=== PATIENT | female | born 1965 | race African-American/Black ===

== ENCOUNTER 2016-05-22 19:12 | Emergency (ER) | payer MEDICARE, BC, OTHER ==
[~2016-05-22] VITALS: Ht 157.5 cm; Wt 108.4 kg
[~2016-05-22 19:12] MED LIST: ASCO500T3 PO; CHOL10003 PO; CYAN10005 PO; ERGO500012 PO; HYDR12.58 PO; LEVO200T5 PO; LEVO50TA5 PO; LEVO5TAB2 PO; LIOT25TA3 PO; LISI1TAB3 PO; LISI2.5T PO; LOVA10TA PO; METH750T2 PO; MONT10TA9 PO; MULT-208 PO; NABU500T PO; OMEP20TA PO; OXYB5TAB33 PO; POTA20TA82 PO; PRED20TA PO; PROAIR HFA8.5 GM INH; SITA50TA PO; SUCR1TAB PO; SUMA100T4 PO; TROS60CA2 PO
[2016-05-22 19:22] VITALS: BP 117/66
[2016-05-22] MEDS ORDERED: ONDA4TAB10 PO (19:43)
[2016-05-22] MEDS ORDERED: AMOX500C PO (19:43)
[2016-05-22] MEDS ORDERED: HYDR-971 PO (19:43)
--- NOTE | 2016-05-22 19:43 | PHYS DOC ---
Past Medical History Past Medical History: Cancer, Diabetes-Type II, GERD, High Cholesterol, Hypertension, Hypothyroid, Migraines, TIA, Other Additional Past Medical Histor: BREAST CA Past Surgical History: Other Additional Past Surgical Histo: RIGHT MASTECTOMY, LEFT BREAST RECONSTRUCTION Alcohol Use: Occasionally Drug Use: None Adult General Chief Complaint Chief Complaint: Toothache HPI HPI Patient is a 50 year old female presents emergency Department today with complaint of right lower dental pain is been ongoing for the past couple of days. Patient states that she knows that she has some teeth that are in poor repair. She denies fevers, chills, myalgias or arthralgias. She denies antibiotic use or dental work done within the past 30 days. Review of Systems Review of Systems Constitutional: Denies fever or chills [] Eyes: Denies change in visual acuity, redness, or eye pain [] HENT: Denies nasal congestion or sore throat [] Respiratory: Denies cough or shortness of breath [] Cardiovascular: No additional information not addressed in HPI [] GI: Denies abdominal pain, nausea, vomiting, bloody stools or diarrhea [] : Denies dysuria or hematuria [] Musculoskeletal: Denies back pain or joint pain [] Integument: Denies rash or skin lesions [] Neurologic: Denies headache, focal weakness or sensory changes [] Endocrine: Denies polyuria or polydipsia [] Allergies Allergies Allergies Coded Allergies Type Severity Reaction Last Updated Verified shrimp Allergy Intermediate Itching 02/18/15 Yes fish oil Adverse Reaction Intermediate Nausea and Vomiting 02/18/15 Yes morphine Adverse Reaction Intermediate Nausea and Vomiting 02/18/15 Yes metformin Adverse Reaction Unknown Nausea and Vomiting 02/18/15 Yes Physical Exam Physical Exam Constitutional: Well developed, well nourished, no acute distress, non-toxic appearance. [] HENT: Normocephalic, atraumatic, bilateral external ears normal, oropharynx moist, no oral exudates, nose normal. There is no trismus. Patient's second bicuspid, first and second right mandibular molars are very stages of decay. The first molar is missing the posterior third of the tooth into the dentin. There is no active purulent drainage. There is mild gingival inflammation without a fluctuant pocket suggestive of an abscess. Eyes: PERRLA, EOMI, conjunctiva normal, no discharge. Bilateral roving nystagmus. Neck: Normal range of motion, no tenderness, supple, no stridor. [] Cardiovascular:Heart rate regular rhythm, no murmur [] Lungs & Thorax: Bilateral breath sounds clear to auscultation [] Abdomen: Bowel sounds normal, soft, no tenderness, no masses, no pulsatile masses. [] Skin: Warm, dry, no erythema, no rash. [] Back: No tenderness, no CVA tenderness. [] Extremities: No tenderness, no cyanosis, no clubbing, ROM intact, no edema. [] Neurologic: Alert and oriented X 3, normal motor function, normal sensory function, no focal deficits noted. [] Psychologic: Affect normal, judgement normal, mood normal. [] Current Patient Data Vital Signs Vital Signs Date Time Temp Pulse Resp B/P Pulse Ox O2 Delivery O2 Flow Rate FiO2 05/22/16 19:22 97.7 77 20 117/66 96 Room Air 97.7 EKG EKG [] Radiology/Procedures Radiology/Procedures [] Course & Med Decision Making Course & Med Decision Making Patient had an additional complaint of nausea. Zofran ODT was ordered for here. She denies abdominal pain. She denies any vomiting, constipation or diarrhea. Dragon Disclaimer Dragon Disclaimer This electronic medical record was generated, in whole or in part, using a voice recognition dictation system. Departure Departure Impression: Primary Impression: Dental caries Disposition: 01 HOME, SELF-CARE Condition: GOOD Referrals: MADDIE GENAO MD (PCP) Patient Instructions: Dental Caries-Brief Additional Instructions: 1. Take the medication as prescribed. 2. Review the discharge instructions provided for self-care and reasons to return to the emergency department. 3. Follow-up with a dental school clinic persistency receiving definitive dental care. If you require an additional prescription for pain medication or antibiotic, please contact your primary care doctor to do so. Scripts Ondansetron (Zofran Odt)4 Mg Tab.rapdis4 Mg PO Q8HRS PRN NAUSEA/VOMITING #10 TAB Prov:TASHA QUINTEROS 05/22/16 Hydrocodone/Apap 5-325 ([place] 5-325 Tablet)1 Each Tablet1 Tab PO PRN Q6HRS PRN PAIN #15 TAB Prov:TASHA QUINTEROS 05/22/16 Amoxicillin 500 Mg Cnljayz062 Mg PO TID #30 CAP Prov:TASHA QUINTEROS 05/22/16 TASHA QUINTEROS May 22, 2016 19:43
[2016-05-22] MEDS ORDERED: ONDANSETRON ODT 4 MG TAB.RAPDIS. PO ONE (20:00)
[2016-05-22] MEDS ORDERED: PROMETHAZINE IM 25 MG/ML VIAL IM ONE (20:15)
== END 2016-05-22 20:03 | disposition home or self-care (01) ==
LOC: ER 19:12
DX: K02.9 Dental caries, unspecified (principal); R11.0 Nausea; E11.9 Type 2 diabetes mellitus without complications; K21.9 Gastro-esophageal reflux disease without esophagitis; E78.00 Pure hypercholesterolemia, unspecified; I10 Essential (primary) hypertension; E03.9 Hypothyroidism, unspecified; G43.909 Migraine, unspecified, not intractable, without status migrainosus; Z86.73 Personal history of transient ischemic attack (TIA), and cerebral infarction without residual deficits; Z91.013 Allergy to seafood; Z88.5 Allergy status to narcotic agent; Z88.8 Allergy status to other drugs, medicaments and biological substances
CPT/HCPCS: 96372; 99283; J2550; Q0162

== ENCOUNTER 2016-05-29 22:00 | Emergency (ER) | payer MEDICARE, BC, OTHER ==
[~2016-05-29 22:00] MED LIST changes: +AMOX500C PO; +HYDR-971 PO; +ONDA4TAB10 PO
[2016-05-29 22:12] VITALS: BP 155/91
[2016-05-29] MEDS ORDERED: DOCU100C5 PO (23:39)
[2016-05-29] MEDS ORDERED: SENN8.6T99 PO (23:39)
[2016-05-29] MEDS ORDERED: POLY17PO5 PO (23:39)
--- NOTE | 2016-05-29 23:39 | PHYS DOC ---
Past Medical History Past Medical History: Cancer, Diabetes-Type II, GERD, High Cholesterol, Hypertension, Hypothyroid, Migraines, TIA, Other Additional Past Medical Histor: BREAST CA Past Surgical History: Other Additional Past Surgical Histo: RIGHT MASTECTOMY, LEFT BREAST RECONSTRUCTION Alcohol Use: Occasionally Drug Use: None Adult General Chief Complaint Chief Complaint: CONSTIPATION HPI HPI 50-year-old female presenting to the emergency department today after having constipation over the past 2-3 days. She is been taking her oral laxatives at home without relief. She tried one enema at home as well which did not help. She denies abdominal pain that feels full in the belly. She denies any chest pain shortness of breath. Location abdomen. Duration intermittent. No alleviating factors present. Review of systems is negative for chest pain redness of breath nausea vomiting fevers or chills. All other review of systems is negative unless otherwise noted in history of present illness. Review of Systems Review of Systems SEE ABOVE. Current Medications Current Medications Current Medications Medications (Trade) Dose Ordered Sig/Susannah Start Time Stop Time Status Last Admin Dose Admin Docusate Sodium (Colace) 100 mg 1X ONCE 05/29/16 23:45 05/29/16 23:46 DC 05/29/16 23:52 100 MG Docusate Sodium (Enemeez) 283 mg 1X ONCE 05/29/16 23:45 05/29/16 23:46 DC 05/29/16 23:52 283 MG Polyethylene Glycol (miraLAX PACKET) 17 gm 1X ONCE 05/30/16 00:00 05/30/16 00:01 DC 05/29/16 23:59 17 GM Sennosides (Senna) 17.2 mg 1X ONCE 05/29/16 23:45 05/29/16 23:46 DC 05/29/16 23:52 17.2 MG Allergies Allergies Allergies Coded Allergies Type Severity Reaction Last Updated Verified shrimp Allergy Intermediate Itching 02/18/15 Yes fish oil Adverse Reaction Intermediate Nausea and Vomiting 02/18/15 Yes morphine Adverse Reaction Intermediate Nausea and Vomiting 02/18/15 Yes metformin Adverse Reaction Unknown Nausea and Vomiting 02/18/15 Yes Physical Exam Physical Exam Constitutional: Well developed, well nourished, no acute distress, non-toxic appearance. HENT: Normocephalic, atraumatic, bilateral external ears normal, oropharynx moist, no oral exudates, nose normal. Eyes: PERRLA, EOMI, conjunctiva normal, no discharge. [] Neck: Normal range of motion, no tenderness, supple, no stridor. Cardiovascular:Heart rate regular rhythm, no murmur [] Lungs & Thorax: Bilateral breath sounds clear to auscultation [] Abdomen: Soft nontender abdomen without rebound tenderness or guarding present. Negative McBurneys point. Negative Alexander sign. No ecchymosis present. Skin: Warm, dry, no erythema, no rash. [] Back: No tenderness, no CVA tenderness. [] Extremities: No tenderness, no cyanosis, no clubbing, ROM intact, no edema. Neurologic: Alert and oriented X 3, normal motor function, normal sensory function, no focal deficits noted. Psychologic: Affect normal, judgement normal, mood normal. Current Patient Data Vital Signs Vital Signs Date Time Temp Pulse Resp B/P Pulse Ox O2 Delivery O2 Flow Rate FiO2 05/29/16 22:12 98.1 90 15 155/91 98 Room Air 98.1 EKG EKG [] Radiology/Procedures Radiology/Procedures [] Course & Med Decision Making Course & Med Decision Making Pertinent Labs and Imaging studies reviewed. (See chart for details) 50-year-old female presenting to the emergency department today with constipation. Vital signs afebrile with a normal heart rate. Unremarkable. Abdomen is soft and nontender. Patient was given laxatives in the emergency department which helped alleviate her symptoms and she was subsequently discharged home to follow up with her primary care physician over the next few days. Dragon Disclaimer Dragon Disclaimer This electronic medical record was generated, in whole or in part, using a voice recognition dictation system. Departure Departure Impression: Primary Impression: Constipation Disposition: 01 HOME, SELF-CARE Condition: STABLE Referrals: MADDIE GENAO MD (PCP) Patient Instructions: Constipation, Adult Additional Instructions: Thank you for allowing us to participate in your care today. Followup with your primary care physician in 3 days if your symptoms do not improve. If you do not have a primary care provider you can ask for a list of our primary care providers. Return to the emergency department you have any new or concerning findings. This should be evaluated by the primary care physician and any necessary consulting services for continued management within a few days after discharge. Return to emergency room if you have any new or concerning symptoms including but not limited to fever, chills, nausea, vomiting, intractable pain, any new rashes, chest pain, shortness of air, uncontrolled bleeding, difficulty breathing, and/or vision loss. Scripts Polyethylene Glycol 3350 (Miralax)17 Gm Powd.pack1 Packet PO DAILY #30 PACKET Ref 3 Prov:HARRISON CORTES MD 05/29/16 Sennosides (Senokot)8.6 Mg Tablet1 Tab PO BID #40 TAB Prov:HARRISON CORTES MD 05/29/16 Docusate Sodium 100 Mg Capsule1 Cap PO BID #14 CAP Prov:HARRISON CORTES MD 05/29/16 Problem Qualifiers Primary Impression: Constipation Constipation type: drug induced constipation Qualified Code: K59.03 - Drug induced constipation HARRISON CORTES MD May 29, 2016 23:39
[2016-05-29] MEDS ORDERED: DOCUSATE SODIUM 283 MG/5 ML ENEMA. PR ONE (23:45)
[2016-05-29] MEDS ORDERED: SENNOSIDES 8.6 MG TABLET PO ONE (23:45)
[2016-05-29] MEDS ORDERED: DOCUSATE SODIUM 100 MG CAPSULE. PO ONE (23:45)
[2016-05-30] MEDS ORDERED: POLYETHYLENE GLYCOL 3350 17 GM PACKET. PO ONE
== END 2016-05-30 01:28 | disposition home or self-care (01) ==
LOC: ER 22:00
DX: K59.03 Drug induced constipation (principal); E11.9 Type 2 diabetes mellitus without complications; K21.9 Gastro-esophageal reflux disease without esophagitis; E78.00 Pure hypercholesterolemia, unspecified; I10 Essential (primary) hypertension; E03.9 Hypothyroidism, unspecified; G43.909 Migraine, unspecified, not intractable, without status migrainosus; Z86.73 Personal history of transient ischemic attack (TIA), and cerebral infarction without residual deficits; Z91.013 Allergy to seafood; Z88.5 Allergy status to narcotic agent; Z88.8 Allergy status to other drugs, medicaments and biological substances
CPT/HCPCS: 99284

== ENCOUNTER 2016-08-11 08:31 | Emergency (ER) | payer MEDICARE, BC, OTHER ==
[~2016-08-11] VITALS: Ht 157.5 cm; Wt 108.9 kg
[~2016-08-11 08:31] MED LIST changes: +DOCU100C28 PO; -ERGO500012 PO; +ERGO500027 PO; -OMEP20TA PO; +OMEP20TA8 PO; +POLY17PO29 PO; +SENN8.6T99 PO
[2016-08-11 08:45] VITALS: BP 134/66
[2016-08-11] MEDS ORDERED: diphenhydrAMINE 50 MG/ML VIAL IVP ONE (09:00)
[2016-08-11] MEDS ORDERED: fentaNYL PF VIAL 100 MCG/2 ML VIAL IV ONE (09:00)
[2016-08-11] MEDS ORDERED: METOCLOPRAMIDE HCL 10 MG/2 ML VIAL. IV ONE (09:00)
--- NOTE | 2016-08-11 09:08 | PHYS DOC ---
Past Medical History Past Medical History: Cancer, Diabetes-Type II, GERD, High Cholesterol, Hypertension, Hypothyroid, Migraines, TIA, Other Additional Past Medical Histor: BREAST CA Past Surgical History: Other Additional Past Surgical Histo: RIGHT MASTECTOMY, LEFT BREAST RECONSTRUCTION Alcohol Use: Occasionally Drug Use: None Adult General Chief Complaint Chief Complaint: HEADACHE HPI HPI Patient is a 50 year old female who presents with complaint of migraine headache. Patient states her symptoms started 2 days ago and have been persistent over that time. Patient states that she has history of migraine headaches and typically gets a headache similar to her current headache once a year. Patient took Imitrex with onset of symptoms but states that this did not help. Patient states that she has had associated nausea but denies fevers or other atypical symptoms. Patient rates her pain currently as 10 out of 10. Patient states that the pain is on top of her head and radiates towards the back of her head to her neck. Review of Systems Review of Systems Constitutional: Denies fever or chills [] Eyes: Denies change in visual acuity, redness, or eye pain [] HENT: Denies nasal congestion or sore throat [] Respiratory: Cough [] Cardiovascular: Denies chest pain or edema [] GI: Nausea, denies abdominal pain, vomiting, bloody stools or diarrhea [] : Denies dysuria or hematuria [] Musculoskeletal: Denies back pain or joint pain [] Integument: Denies rash or skin lesions [] Neurologic: Headache, denies focal weakness or sensory changes [] Current Medications Current Medications Current Medications Medications (Trade) Dose Ordered Sig/Susannah Start Time Stop Time Status Last Admin Dose Admin Diphenhydramine HCl (Benadryl) 25 mg 1X ONCE 08/11/16 09:00 08/11/16 09:04 DC 08/11/16 09:27 25 MG Fentanyl Citrate (Fentanyl 2ml Vial) 50 mcg 1X ONCE 08/11/16 09:00 08/11/16 09:04 DC 08/11/16 09:27 50 MCG Metoclopramide HCl (Reglan) 10 mg 1X ONCE 08/11/16 09:00 08/11/16 09:04 DC 08/11/16 09:27 10 MG Sodium Chloride 500 ml @ 500 mls/hr 1X ONCE 08/11/16 09:15 08/11/16 10:14 DC 08/11/16 09:28 500 MLS/HR Allergies Allergies Allergies Coded Allergies Type Severity Reaction Last Updated Verified shrimp Allergy Intermediate Itching 02/18/15 Yes fish oil Adverse Reaction Intermediate Nausea and Vomiting 02/18/15 Yes morphine Adverse Reaction Intermediate Nausea and Vomiting 02/18/15 Yes metformin Adverse Reaction Unknown Nausea and Vomiting 02/18/15 Yes Physical Exam Physical Exam Constitutional: Alert, afebrile, appears in mild to moderate discomfort. [] HENT: Normocephalic, atraumatic, bilateral external ears normal, oropharynx moist, no oral exudates, nose normal. [] Eyes: PERRLA, EOMI, conjunctiva normal, no discharge. [] Neck: Normal range of motion, no tenderness, supple, no stridor. [] Cardiovascular:Heart rate regular rhythm, no murmur [] Lungs & Thorax: Bilateral breath sounds clear to auscultation [] Abdomen: Bowel sounds normal, soft, no tenderness, no masses, no pulsatile masses. [] Skin: Warm, dry, no erythema, no rash. [] Back: No tenderness, no CVA tenderness. [] Extremities: No tenderness, no cyanosis, no clubbing, ROM intact, no edema. [] Neurologic: Alert and oriented X 3, normal motor function, normal sensory function, no focal deficits noted. [] Current Patient Data Vital Signs Vital Signs Date Time Temp Pulse Resp B/P (MAP) Pulse Ox O2 Delivery O2 Flow Rate FiO2 08/11/16 09:27 14 95 Room Air 08/11/16 08:45 98.9 113 98.9 EKG EKG Not performed [] Radiology/Procedures Radiology/Procedures Not performed [] Course & Med Decision Making Course & Med Decision Making Pertinent Labs and Imaging studies reviewed. (See chart for details) Patient was treated with IV Reglan, Benadryl, and fentanyl. On reevaluation, patient states that her symptoms have resolved. Patient's symptoms appear consistent with recurrent episodic migraine syndrome. Advised follow-up with patient's primary doctor in the next 3-5 days for reevaluation and return to emergency department for any worsening symptoms. Patient was understanding and in agreement with treatment plan. Dragon Disclaimer Dragon Disclaimer This electronic medical record was generated, in whole or in part, using a voice recognition dictation system. Departure Departure Impression: Primary Impression: Migraine headache Disposition: HOME, SELF-CARE Condition: IMPROVED Referrals: MADDIE GENAO MD (PCP) Patient Instructions: Migraine Headache Additional Instructions: Follow-up to primary doctor in the next 3-5 days if symptoms not improving. Return to the emergency department for any worsening symptoms. Problem Qualifiers Primary Impression: Migraine headache Migraine type: unspecified Status migrainosus presence: without status migrainosus Intractability: not intractable Qualified Codes: G43.909 - Migraine, unspecified, not intractable, without status migrainosus MADISON MCCORMICK MD Aug 11, 2016 09:08
[2016-08-11] MEDS ORDERED: IV NORMAL SALINE 500ML BAG 500 ML IV ONE (09:15)
--- NOTE | 2016-08-11 10:48 | ACF ---
Admission Forms Criteria HEADACHES Clinical Indications for Admission to Inpatient Care (Place 'X' for any and all applicable criteria): Admission is indicated for ANY ONE of the following(1)(2)(3)(4): [ ]I. Inpatient admission required rather than observational care (Also use Headaches: Observation Care as appropriate) because of ANY ONE of the following: [ ]a) Severe pain requiring acute inpatient management [ ]b) Altered mental status that is severe or persistent [ ]c) Vomiting or dehydration that is severe or persistent [ ]d) New-onset focal neurologic deficit that is severe or persistent [ ]e) Hypertension requiring inpatient treatment [ ]f) Severe (new) neurologic findings requiring inpatient care as indicated by ANY ONE of following(9)(10): [ ]1) Papilledema [ ]2) Cerebral edema [ ]3) Mass effect on CT scan [ ]4) Cerebral bleeding, ischemia, or vasospasm(16) [ ]5) Hydrocephalus(17) [ ]6) Uncontrolled seizures [ ]g) IV infusion of anticoagulation, platelet inhibitors vasoactive, or antiarrhythmic medication. [ ]h) Cerebral bleeding, hydrocephalus, or vasospasm monitoring (16) [ ]i) Increased intracranial pressure or cerebral edema monitoring (17) [ ]j) Other condition, treatment or monitoring requiring inpatient admission [ ]II. Unruptured but threatening aneurysm or vascular malformation [ ]III. Venous sinus thrombosis [ ]IV. Increased intracranial pressure [ ]V. Cerebral spinal fluid leak with decreased intracranial pressure [ ]. Medication-overuse headache that has failed all outpatient management options [ ]VII. Vasculitis (eg, giant cell (temporal) arteritis, central nervous system vasculitis) requiring IV corticosteroids, IV antithrombotic therapy, or inpatient monitoring (eg, visual symptoms or findings, other ischemic manifestations)[A](10)(11) Extended stay beyond goal length of stay may be needed for (27): [ ]a) Intractable migraine [ ]b) Subarachnoid or intracranial hemorrhage [ ]c) Malignant hypertension [ ]d) Detoxification from drug withdrawal in medication-overuse headache (29) The original [facility] content created by [facility] has been revised. The portions of the content which have been revised are identified through the use of italic text or in bold, and [employer] has neither reviewed nor approved the modified material.All other unmodified content is copyright [facility]. Please see references footnoted in the original [facility] edition 2016 SARWAT RAZO Aug 11, 2016 10:48
== END 2016-08-11 12:03 | disposition home or self-care (01) ==
LOC: ER 08:31
DX: G43.909 Migraine, unspecified, not intractable, without status migrainosus (principal); R05 Cough; E11.9 Type 2 diabetes mellitus without complications; E03.9 Hypothyroidism, unspecified; E78.00 Pure hypercholesterolemia, unspecified; I10 Essential (primary) hypertension; K21.9 Gastro-esophageal reflux disease without esophagitis; Z86.73 Personal history of transient ischemic attack (TIA), and cerebral infarction without residual deficits; Z90.11 Acquired absence of right breast and nipple; Z88.8 Allergy status to other drugs, medicaments and biological substances; Z88.5 Allergy status to narcotic agent; Z91.013 Allergy to seafood
CPT/HCPCS: 96361; 96374; 96375; 99284; J1200; J2765; J3010; J7040

== ENCOUNTER 2016-12-09 10:30 | Emergency (ER) | payer MEDICARE, BC, OTHER ==
[~2016-12-09] VITALS: Ht 157.5 cm; Wt 106.1 kg
[2016-12-09 11:06] LABS: BILIRUBIN,URINE NEGATIVE (NEG); GLUCOSE,URINE NEGATIVE (NEG); NITRITE,URINE NEGATIVE (NEG); PH,URINE 5.5; PROTEIN,URINE NEGATIVE (NEG-TRACE); UROBILINOGEN,URINE 0.2 mg/dL (0.2 mg/dL)
[2016-12-09 11:13] LABS: BACTERIA,URINE MANY /HPF (0-FEW); SQUAMOUS EPITHELIAL CELL,UR MANY /LPF
[2016-12-09 11:14] LABS: RBC,URINE OCC /HPF (0-2)
[2016-12-09 11:15] LABS: YEAST,URINE PRESENT /HPF
[2016-12-09] MEDS ORDERED: MORPHINE SULFATE 4 MG/ML DISP.SYRIN. IV ONE (11:15)
[2016-12-09] MEDS ORDERED: ONDANSETRON PF 4 MG/2 ML VIAL. IV ONE (11:15)
[2016-12-09 11:45] LABS: HEMATOCRIT 36.9 % (36.0-47.0); HEMOGLOBIN 12.4 g/dL (12.0-15.5); RED BLOOD COUNT 3.95 x10^6/uL (3.50-5.40); RED CELL DISTRIBUTION WIDTH 16.2 % (11.5-14.5); WHITE BLOOD COUNT 7.2 x10^3/uL (4.0-11.0)
[2016-12-09] MEDS ORDERED: KETOROLAC 30 MG/ML INJ. IV ONE (12:00)
[2016-12-09 12:34] LABS: CREATININE 0.8 mg/dL (0.6-1.0); GFR 91.1
[2016-12-09] MEDS ORDERED: IV NORMAL SALINE 1000ML BAG 1,000 ML IV ONE (12:45)
[2016-12-09] MEDS ORDERED: IOHEXOL 300 MG/ML 75 ML VIAL IV ONE (12:45)
[2016-12-09] MEDS ORDERED: CONTRAST GIVEN MC PRN (12:45)
[2016-12-09 12:48] LABS: ALBUMIN/GLOBULIN RATIO 1.2 (1.0-1.7); TOTAL BILIRUBIN 0.7 mg/dL (0.2-1.0); TOTAL PROTEIN 7.4 g/dL (6.4-8.2)
[2016-12-09 12:56] VITALS: BP 113/72
--- NOTE | 2016-12-09 13:27 | RAD ---
Indication right lower quadrant tenderness. History of breast malignancy noted. Axial images to the abdomen and pelvis were obtained. Approximately 75 cc of Omnipaque 300 was administered. No oral contrast was administered. Note is made of a previous examination 12/22/2013. The lung bases are unremarkable. Reconstructed right breast is noted. The liver and spleen appear unremarkable. Clips are noted in the gallbladder fossa. The pancreas appears unremarkable. No adrenal or renal masses are seen. An acute finding in the abdomen is not seen. In the pelvis occasional diverticula are seen associated with the large bowel. No active inflammation is seen. The appendix is seen in the right lower quadrant and appears unremarkable. There are degenerative changes in the lumbar spine likely with an associated component of spinal stenosis. IMPRESSION: No acute finding seen in the abdomen or pelvis.
--- NOTE | 2016-12-09 13:32 | PHYS DOC ---
Past Medical History Past Medical History: Cancer, Diabetes-Type II, Hypertension, Other Additional Past Medical Histor: LEFT BREAST REDUCTION, RIGHT MASTECTOMY, CATARACTS Past Surgical History: Cancer Surgery, Other Additional Past Surgical Histo: RIGHT BREAST MASTECOMY,LEFT BREAST REDUCTION. Alcohol Use: None Drug Use: None Adult General Chief Complaint Chief Complaint: ABDOMINAL PAIN HPI HPI Patient is a 51 year old female presents the ED complaining of lower abdominal pain X 3 days. States the pain is on the right side of her abdomen. Describes the pain as sharp and crampy. Rates the pain as 6 out of 10. No migration or radiation with pain. Denies nausea/vomiting, diarrhea, vaginal discharge/ bleeding, blood in stool, dizziness, weakness, chest pain, shortness of breath, fever or headache. Review of Systems Review of Systems Constitutional: Denies fever or chills [] Eyes: Denies change in visual acuity, redness, or eye pain [] HENT: Denies nasal congestion or sore throat [] Respiratory: Denies cough or shortness of breath [] Cardiovascular: No additional information not addressed in HPI [] GI: Complains of abdominal pain. Denies nausea, vomiting, bloody stools or diarrhea [] : Denies dysuria or hematuria [] Musculoskeletal: Denies back pain or joint pain [] Integument: Denies rash or skin lesions [] Neurologic: Denies headache, focal weakness or sensory changes [] Endocrine: Denies polyuria or polydipsia [] Current Medications Current Medications Current Medications Medications (Trade) Dose Ordered Sig/Susannah Start Time Stop Time Status Last Admin Dose Admin Info (Do NOT chart on this entry -- for MONITORING) 1 each PRN DAILY PRN 12/09/16 12:45 12/09/16 14:38 DC Iohexol (Omnipaque 300 Mg/ml) 75 ml 1X ONCE 12/09/16 12:45 12/09/16 12:46 DC 12/09/16 12:50 75 ML Ketorolac Tromethamine (Toradol) 30 mg 1X ONCE 12/09/16 12:00 12/09/16 12:01 DC 12/09/16 12:05 30 MG Morphine Sulfate 4 mg 1X ONCE 12/09/16 11:15 12/09/16 11:16 DC Ondansetron HCl (Zofran) 4 mg 1X ONCE 12/09/16 11:15 12/09/16 11:16 DC 12/09/16 11:36 4 MG Sodium Chloride 1,000 ml @ 1,000 mls/hr 1X ONCE 12/09/16 12:45 12/09/16 13:44 DC 12/09/16 12:43 1,000 MLS/HR Allergies Allergies Allergies Coded Allergies Type Severity Reaction Last Updated Verified shrimp Allergy Intermediate Itching 02/18/15 Yes fish oil Adverse Reaction Intermediate Nausea and Vomiting 02/18/15 Yes morphine Adverse Reaction Intermediate Nausea and Vomiting 02/18/15 Yes metformin Adverse Reaction Unknown Nausea and Vomiting 02/18/15 Yes Physical Exam Physical Exam Constitutional: Well developed, well nourished, no acute distress, non-toxic appearance. [] HENT: Normocephalic, atraumatic, bilateral external ears normal, oropharynx moist, no oral exudates, nose normal. [] Eyes: PERRLA, EOMI, conjunctiva normal, no discharge. [] Neck: Normal range of motion, no tenderness, supple, no stridor. [] Cardiovascular:Heart rate regular rhythm, no murmur [] Lungs & Thorax: Bilateral breath sounds clear to auscultation [] Abdomen: Bowel sounds normal, soft, MILD DIFFUSE LOWER ABDOMINAL TENDERNESS. no masses, no pulsatile masses. [] Skin: Warm, dry, no erythema, no rash. [] Back: No tenderness, no CVA tenderness. [] Extremities: No tenderness, no cyanosis, no clubbing, ROM intact, no edema. [] Neurologic: Alert and oriented X 3, normal motor function, normal sensory function, no focal deficits noted. [] Psychologic: Affect normal, judgement normal, mood normal. [] Current Patient Data Vital Signs Vital Signs Date Time Temp Pulse Resp B/P (MAP) Pulse Ox O2 Delivery O2 Flow Rate FiO2 12/09/16 12:56 113/72 (86) Room Air 12/09/16 12:26 72 94 12/09/16 10:40 97.7 16 97.7 Lab Values Laboratory Tests Test 12/09/16 10:40 12/09/16 11:35 12/09/16 12:05 Urine Collection Type Unknown Urine Color Yellow Urine Clarity Clear Urine pH 5.5 Urine Specific [place] 1.025 Urine Protein Negative mg/dL (NEG-TRACE) Urine Glucose (UA) Negative mg/dL (NEG) Urine Ketones (Stick) Negative mg/dL (NEG) Urine Blood Negative (NEG) Urine Nitrite Negative (NEG) Urine Bilirubin Negative (NEG) Urine Urobilinogen Dipstick 0.2 mg/dL (0.2 mg/dL) Urine Leukocyte Esterase Negative (NEG) Urine RBC Occ /HPF (0-2) Urine WBC 1-4 /HPF (0-4) Urine Squamous Epithelial Cells Many /LPF Urine Bacteria Many /HPF (0-FEW) Urine Mucus Marked /LPF Urine Yeast Present /HPF White Blood Count 7.2 x10^3/uL (4.0-11.0) Red Blood Count 3.95 x10^6/uL (3.50-5.40) Hemoglobin 12.4 g/dL (12.0-15.5) Hematocrit 36.9 % (36.0-47.0) Mean Corpuscular Volume 94 fL (79-100) Mean Corpuscular Hemoglobin 32 pg (25-35) Mean Corpuscular Hemoglobin Concent 34 g/dL (31-37) Red Cell Distribution Width 16.2 % (11.5-14.5) H Platelet Count 216 x10^3/uL (140-400) Sodium Level 140 mmol/L (136-145) Potassium Level 4.0 mmol/L (3.5-5.1) Chloride Level 102 mmol/L (98-107) Carbon Dioxide Level 32 mmol/L (21-32) Anion Gap 6 (6-14) Blood Urea Nitrogen 21 mg/dL (7-20) H Creatinine 0.8 mg/dL (0.6-1.0) Estimated GFR (Cockcroft-Gault) 91.1 BUN/Creatinine Ratio 26 (6-20) H Glucose Level 109 mg/dL (70-99) H Calcium Level 9.0 mg/dL (8.5-10.1) Total Bilirubin 0.7 mg/dL (0.2-1.0) Aspartate Amino Transferase (AST) 29 U/L (15-37) Alanine Aminotransferase (ALT) 46 U/L (14-59) Alkaline Phosphatase 79 U/L (46-116) Total Protein 7.4 g/dL (6.4-8.2) Albumin 4.0 g/dL (3.4-5.0) Albumin/Globulin Ratio 1.2 (1.0-1.7) Lipase 151 U/L (73-393) Laboratory Tests 12/09/16 11:35 Laboratory Tests 12/09/16 12:05 EKG EKG [] Radiology/Procedures Radiology/Procedures []PROCEDURE: CT ABD PELV W/ IV CONTRST ONLY Indication right lower quadrant tenderness. History of breast malignancy noted. Axial images to the abdomen and pelvis were obtained. Approximately 75 cc of Omnipaque 300 was administered. No oral contrast was administered. Note is made of a previous examination 12/22/2013. The lung bases are unremarkable. Reconstructed right breast is noted. The liver and spleen appear unremarkable. Clips are noted in the gallbladder fossa. The pancreas appears unremarkable. No adrenal or renal masses are seen. An acute finding in the abdomen is not seen. In the pelvis occasional diverticula are seen associated with the large bowel. No active inflammation is seen. The appendix is seen in the right lower quadrant and appears unremarkable. There are degenerative changes in the lumbar spine likely with an associated component of spinal stenosis. IMPRESSION: No acute finding seen in the abdomen or pelvis. Course & Med Decision Making Course & Med Decision Making Pertinent Labs and Imaging studies reviewed. (See chart for details) []Discussed labs and imaging with patient. Patient's pain improved. Vital stable , no acute distress. On re-examination, Abdomen is soft nontender nondistended. No peritoneal signs. Discussed follow-up with GI in 1-2 days. Provided contact information/education. Discussed reasons to return to the ED. Patient understands and agrees with plan. Yeast recognized in urine. Patient states she has been using otc treatment for her yeast infection and it has improved. Patient denies symptoms of her normal yeast infections at this time. Call placed to patient on 12/10/16 at 1525. Patients phone not connected at this time. Will mail prescription and contact information to patients home address incase she does not have prescription for diflucan and requires treatment if symptoms occur. Dragon Disclaimer Dragon Disclaimer This electronic medical record was generated, in whole or in part, using a voice recognition dictation system. Departure Departure Impression: Primary Impression: Abdominal pain Disposition: HOME, SELF-CARE Condition: IMPROVED Referrals: MADDIE GENAO MD (PCP) RICH LUCAS MD Patient Instructions: Abdominal Pain THERESA FIELD Dec 09, 2016 13:32
== END 2016-12-09 14:25 | disposition home or self-care (01) ==
LOC: ER 10:30
DX: R10.84 Generalized abdominal pain (principal); E11.9 Type 2 diabetes mellitus without complications; I10 Essential (primary) hypertension; Z88.5 Allergy status to narcotic agent; Z88.8 Allergy status to other drugs, medicaments and biological substances; Z91.013 Allergy to seafood
CPT/HCPCS: 36415; 74177; 80053; 81001; 83690; 85027; 96361; 96374; 96375; 99285; J1885; J2405; J7030; Q9967

== ENCOUNTER → 2017-04-06 | Outpatient (CLI) | payer BC, MEDICARE, OTHER | END | disposition home or self-care (01) | LOC: MAMMO 09:02 | DX: Z12.31 Encounter for screening mammogram for malignant neoplasm of breast (principal); Z85.3 Personal history of malignant neoplasm of breast; Z90.11 Acquired absence of right breast and nipple | CPT/HCPCS: 77067 ==

== ENCOUNTER → 2018-02-06 | Outpatient (CLI) | payer BC, MEDICARE, MEDICAID ==
[~2018-02-06] MED LIST changes: +HYDR-3164 PO; -HYDR-971 PO
--- NOTE | 2018-02-06 16:38 | KCIC ---
Lumbar spine AP lateral and oblique views 02/06/2018. Reason for exam: Low back pain. Patient fell 5 days ago. Alignment is normal. There is no loss of vertebral body height or other evidence for fracture. There is some disc narrowing at L5-S1. The other discs appear fairly well maintained. Prominent anterior osteophytes are shown throughout the lower lumbar spine. There is no apparent destructive process. IMPRESSION: Degenerative disc disease. No acute abnormality. Sacrum and coccyx AP and lateral views: No malalignment is seen and there is no apparent cortical step-off. The SI joints appear normal. No destructive process is seen. IMPRESSION: No acute abnormality. Electronically signed by: Elver Campos Jr., MD (02/06/2018 4:33 PM) [email or web address]
== END | disposition home or self-care (01) ==
LOC: KCIC 14:44
PROVIDERS: ATTEND Family Medicine
DX: M51.36 Other intervertebral disc degeneration, lumbar region (principal); M48.07 Spinal stenosis, lumbosacral region; M25.78 Osteophyte, vertebrae; M53.3 Sacrococcygeal disorders, not elsewhere classified; W19.XXXD Unspecified fall, subsequent encounter
CPT/HCPCS: 72110; 72220

== ENCOUNTER → 2018-05-01 | Outpatient (CLI) | payer BC, MEDICARE, OTHER ==
[~2018-05-01] MED LIST changes: +ALBU2.5V8 INH; +LIOT25TA PO; -LIOT25TA3 PO; -PROAIR HFA8.5 GM INH
--- NOTE | 2018-05-01 13:25 | RAD ---
EXAM: Maxillofacial bone CT without contrast. HISTORY: Sinusitis. TECHNIQUE: Computed tomographic images of the maximal facial bones were obtained without contrast. *One or more of the following individualized dose reduction techniques were utilized for this examination: 1. Automated exposure control. 2. Adjustment of the mA and/or kV according to patient size. 3. Use of iterative reconstruction technique. COMPARISON: None. FINDINGS: There is no maxillary sinus opacification or air-fluid level. There is no sinus wall thickening or erosion. The ostiomeatal units are patent. There is no significant nasal septal deviation. There are multiple dental restorations. There is evidence of lens surgery. There is minimal right orbital band keratopathy. The mastoid air cells are clear. There is a defect within the right mastoid bone likely due to a prior mastoidectomy. The visualized portions the brain and calvarium are unremarkable. IMPRESSION: No evidence of acute or chronic sinusitis. Electronically signed by: Mallory Lockwood MD (05/01/2018 1:22 PM) [id number]
== END | disposition home or self-care (01) ==
LOC: CT 12:20
PROVIDERS: ATTEND Family Medicine
DX: J01.01 Acute recurrent maxillary sinusitis (principal)
CPT/HCPCS: 70486

== ENCOUNTER → 2018-09-13 | Outpatient (CLI) | payer BC, MEDICARE, OTHER ==
[~2018-09-13] MED LIST changes: +MONT10TA49 PO; -MONT10TA9 PO
--- NOTE | 2018-09-14 11:06 | RAD ---
EXAM: MAMMO LETICIA DIAG LT, BREAST LEFT HISTORY: imaging evaluation of a region of pain in the left breast COMPARISON: 04/06/2017 09/29/2012 Left CC and MLO views of the breasts were performed. Left breast tomosynthesis was performed in CC and MLO projections. This study was interpreted with the benefit of Computerized Aided Detection (CAD). Breast Density: The breast parenchyma is heterogeneously dense, which could reduce sensitivity of mammography. Breast parenchyma level C. FINDINGS: Benign calcifications are present. A small well-circumscribed masses seen in the retroareolar, slightly superior left breast measuring approximately 5 cm from the nipple. The visualized axillae are unremarkable. Given the patient described left breast pain and abnormality within the left breast on mammogram, ultrasound was performed. ULTRASOUND FINDINGS: Targeted ultrasound of the mammographic area of concern and region of patient described pain was performed. 12:00 position, 5 cm from the nipple: A near anechoic mass of circumscribed margins and internal homogeneous low level echoes is present with parallel orientation and is of oval/round shape. There is no internal vascularity on Doppler interrogation. It demonstrates posterior acoustic enhancement and measures 0.4 x 0.4 x 0.3 cm. 2:00 position, 4 cm from the nipple: A hypoechoic mass of circumscribed margins and round/oval shape is present, measuring 0.5 x 0.2 x 0.4 cm. This demonstrates internal homogenous hypoechoic echogenicity. The region of patient's pain in the lower, lateral left breast was also assessed with ultrasound and normal fibroglandular tissue is identified in this region. IMPRESSION: Left breast complicated cystic structure and likely benign-appearing nodule, findings for which short-term imaging is advised. BI-RADS CATEGORY: 3 PROBABLY BENIGN FINDING(S)-SHORT INTERVAL FOLLOW-UP SUGGESTED RECOMMENDED FOLLOW-UP: 6M 6 MONTH FOLLOW-UP 6 month follow up imaging of the left breast is recommended with dedicated diagnostic mammography and ultrasound. Recommend clinical management of the patient's left breast pain. PQRS compliance statement: Patient information was entered into a reminder system with a target due date for the next mammogram. Mammography is a sensitive method for finding small breast cancers, but it does not detect them all and is not a substitute for careful clinical examination. A negative mammogram does not negate a clinically suspicious finding and should not result in delay in biopsying a clinically suspicious abnormality. "Our facility is accredited by the [employer] Mammography [employer]." SHANTED
== END | disposition home or self-care (01) ==
LOC: MAMMO 13:19
PROVIDERS: ATTEND Family Medicine
DX: N63.21 Unspecified lump in the left breast, upper outer quadrant (principal); Z85.3 Personal history of malignant neoplasm of breast
CPT/HCPCS: 76641; 77065; G0279; 77061

== ENCOUNTER → 2019-01-17 | Outpatient (CLI) | payer BC, MEDICARE, OTHER ==
[~2019-01-17] MED LIST changes: +CYAN-25 PO; -CYAN10005 PO; -LIOT25TA PO; +LIOT25TA4 PO; +LISI1TAB23 PO; -LISI1TAB3 PO; +POTA20TA4 PO; -POTA20TA82 PO
--- NOTE | 2019-01-17 19:43 | RAD ---
Study: 1. 2-D and 3-D diagnostic tomosynthesis of the left breast. 2. Left breast diagnostic ultrasound INDICATION: Six-month follow-up in the setting of right breast cancer status post mastectomy. The patient is also experiencing pain and a palpable lump. COMPARISON: Left breast diagnostic mammogram and ultrasound from 09/13/2018 TECHNIQUE: 2-D and 3-D diagnostic tomosynthesis of the left breast utilizing digital acquisition and computer-aided detection. Diagnostic left breast ultrasound was performed as well. FINDINGS: Breast Tissue Density C : The breast tissue is heterogeneously dense. Scattered fibroglandular elements may obscure underlying pathology. A skin marker denotes the palpable region of concern. No discrete mammographic and amount is identified at this location no newly identified mammographic findings concerning for malignancy throughout the left breast. Targeted sonographic evaluation of the left breast at the 12:00 location 5 cm from the nipple again demonstrates a small focus of avascular hypoechogenicity measuring 0.2 x 0.2 x 0.2 cm on the current study compared to 0.4 x 0.4 x 0.3 cm on the prior. At the left breast 2:00 location 4 cm from the nipple, redemonstrated ovoid, heterogeneously hypoechoic and well-circumscribed mass measuring 0.7 x 0.3 cm compared to 0.5 x 0.2 cm measured in a similar plane though the difference is favored technical and visually these appear essentially unchanged. In the region of palpable concern at 1:00 location 9 cm from the nipple, no sonographic abnormality is seen. IMPRESSION: 1. No mammographic or sonographic correlate for the patient's palpable region of concern. No significant interval change in the mammographic appearance of either breast. 2. Redemonstrated well-circumscribed, heterogeneously hypoechoic masses within the left breast one of which measures smaller in size and the other slightly larger though this is favored technical. Given the lack of any significant interval change or development of suspicious sonographic features, these are not considered benign. Collectively, no mammographic or sonographic findings for malignancy throughout the left breast. BI-RADS Category 2: Benign. Recommendation: Bilateral mammography in 6 months. A mammogram does not have 100% sensitivity and therefore a negative imaging study should not delay further work up of a suspicious abnormality. "Our facility is accredited by the [employer] Mammography Program."
== END | disposition home or self-care (01) ==
LOC: MAMMO 09:51
PROVIDERS: ATTEND Family Medicine
DX: D24.2 Benign neoplasm of left breast (principal); Z90.11 Acquired absence of right breast and nipple; Z85.3 Personal history of malignant neoplasm of breast
CPT/HCPCS: 76641; 77065

== ENCOUNTER → 2019-08-14 | Outpatient (CLI) | payer BC, MEDICARE, OTHER ==
--- NOTE | 2019-08-14 14:48 | RAD ---
EXAM: Cervical spine CT without contrast. HISTORY: Neck pain and arm weakness. TECHNIQUE: Computed tomographic images of the cervical spine were obtained without contrast. Multiplanar reformatting was performed. *One or more of the following individualized dose reduction techniques were utilized for this examination: 1. Automated exposure control. 2. Adjustment of the mA and/or kV according to patient size. 3. Use of iterative reconstruction technique. COMPARISON: None. FINDINGS: There is no significant listhesis. The vertebral bodies are normal in height. There is mild multilevel endplate remodeling and facet arthropathy. There is no fracture or suspicious osseous lesion. At C2-C3, there is no stenosis. At C3-C4, there is a posterior central disc protrusion superimposed on endplate remodeling. There is no stenosis. At C4-C5, there is endplate remodeling. There is mild left greater than right facet arthropathy. There is mild central canal stenosis. At C5-C6, there is endplate remodeling. There is mild right greater than left facet arthropathy. There is no stenosis. At C6-C7, there is a disc bulge and endplate remodeling. There is mild right facet arthropathy. There is no stenosis. IMPRESSION: 1. Mild multilevel degenerative change involving the cervical spine. No severe stenosis is seen. 2. No acute osseous finding. Electronically signed by: Mallory Lockwood MD (08/14/2019 2:45 PM) [id number]
== END | disposition home or self-care (01) ==
LOC: CT 11:55
PROVIDERS: ATTEND Family Medicine
DX: M47.892 Other spondylosis, cervical region (principal); M48.02 Spinal stenosis, cervical region; R29.898 Other symptoms and signs involving the musculoskeletal system; M54.2 Cervicalgia
CPT/HCPCS: 72125

== ENCOUNTER → 2020-06-05 | Outpatient (CLI) | payer BC, MEDICARE, OTHER ==
[~2020-06-05] MED LIST changes: +METH-562 PO; -METH750T2 PO; -NABU500T PO; +NABU500T11 PO
--- NOTE | 2020-06-06 19:34 | RAD ---
DATE: 06/05/2020 EXAM: MAMMO LETICIA SCREEN LT HISTORY: Screening. COMPARISON: Multiple exams dating back to 10/01/2013 This study was interpreted with the benefit of Computerized Aided Detection (CAD). Breast Density: HETERO The breast parenchyma is heterogenously dense, which could reduce sensitivity of mammography. Breast parenchyma level C. FINDINGS: No mass, suspicious calcification, or architectural distortion in either breast. IMPRESSION: No evidence of malignancy. BI-RADS CATEGORY: 1 NEGATIVE RECOMMENDED FOLLOW-UP: 12M 12 MONTH FOLLOW-UP PQRS compliance statement: Patient information was entered into a reminder system with a target due date for the next mammogram. Mammography is a sensitive method for finding small breast cancers, but it does not detect them all and is not a substitute for careful clinical examination. A negative mammogram does not negate a clinically suspicious finding and should not result in delay in biopsying a clinically suspicious abnormality. "Our facility is accredited by the [employer] Mammography Program."
== END ==
LOC: MAMMO 14:06
PROVIDERS: ATTEND Family Medicine
DX: Z12.31 Encounter for screening mammogram for malignant neoplasm of breast (principal); Z85.3 Personal history of malignant neoplasm of breast
CPT/HCPCS: 77063; 77067

== ENCOUNTER → 2020-10-28 | Outpatient (CLI) | payer BC, MEDICARE ==
[~2020-10-28] MED LIST changes: -LISI2.5T PO; +LISI2.5T12 PO
--- NOTE | 2020-10-29 11:16 | KCIC ---
EXAM: XR KNEE 3 VIEWS 10/28/2020 1:08 PM CLINICAL INDICATION: Bilateral knee pain medially COMPARISON: None TECHNIQUE: 3 views of the right and left knee FINDINGS: No acute fracture. Alignment is normal. There is mild medial compartment narrowing bilater ally with small osteophytes. No joint effusion or soft tissue abnormality. IMPRESSION: Mild bilateral medial compartment predominant osteoarthrosis. Electronically signed by: Asha Ivy MD (10/29/2020 11:13 AM) [id number]
== END ==
LOC: KCIC 13:05
PROVIDERS: ATTEND Family Medicine
DX: M17.0 Bilateral primary osteoarthritis of knee (principal); M25.862 Other specified joint disorders, left knee; M25.861 Other specified joint disorders, right knee; M25.762 Osteophyte, left knee; M25.761 Osteophyte, right knee
CPT/HCPCS: 73562-50